=== PATIENT | female | born 1950 | race Caucasian/White ===

== ENCOUNTER 2020-10-23 19:41 | Observation (INO) | payer MEDICARE ==
[~2020-10-23] VITALS: Ht 167.6 cm; Wt 81.6 kg
[2020-10-23 19:44] VITALS: BP 159/94
[2020-10-23] MEDS ORDERED: KLOR-CON 10 ER10 MEQ PO (20:05)
[2020-10-23] MEDS ORDERED: TRIAMTERENE/HCT1 CA1 PO (20:05)
[2020-10-23] MEDS ORDERED: LINZESS72 MCG PO (20:05)
[2020-10-23] MEDS ORDERED: TOPROL XL50 MG PO (20:06)
[2020-10-23] MEDS ORDERED: LORATIDINE 10 M10 M1 PO (20:06)
[2020-10-23 20:12] LABS: ABSOLUTE BASOPHILS 0.1 thou/uL (0.0-0.2); ABSOLUTE EOSINOPHILS 0.1 thou/uL (0.0-0.7); ABSOLUTE LYMPHOCYTES 2.5 thou/uL (0.8-5.3); ABSOLUTE MONOCYTES 0.7 thou/uL (0.0-1.2); BASOPHILS 1.1 %; HEMATOCRIT 38.5 % (37.0-47.0); HEMOGLOBIN 13.2 gm/dL (12.0-15.0); LYMPHOCYTES 23.9 %; MCH 29.6 pg (26.0-34.0); MCHC 34.2 g/dL (28.0-37.0); MCV 86.5 fL (80.0-100.0); MONOCYTES 6.4 %; MPV 7.3 fl. (7.2-11.1); NUCLEATED RBCS 0 /100WBC; PLATELET COUNT* 377 thou/uL (150-400); POLYS 67.6 %; RBC 4.45 mil/uL (4.20-5.00); RDW-CV 12.2 % (10.5-14.5); WBC 10.4 thou/uL (4.0-11.0)
[2020-10-23 20:20] LABS: CALCIUM 8.4 mg/dL (8.5-10.1); CREATININE 1.3 mg/dL (0.6-1.3); POTASSIUM 3.3 mmol/L (3.5-5.1)
[2020-10-23 20:25] LABS: ALBUMIN 3.5 g/dL (3.4-5.0); TOTAL BILIRUBIN 0.4 mg/dL (<0.1-1.0); TOTAL PROTEIN 7.1 g/dL (6.4-8.2)
[2020-10-23] MEDS ORDERED: OXYCODONE HCL 55 MG PO (21:46)
[2020-10-23] MEDS ORDERED: ZOFRAN ODT4 MG PO (21:46)
[2020-10-23 23:26] VITALS: BP 113/54
[2020-10-24] MEDS ORDERED: CALCIUM500 MG PORT (00:57)
[2020-10-24 08:00] VITALS: BP 112/61
--- NOTE | 2020-10-24 10:27 | EKG ---
[place] [address] ELECTROCARDIOGRAM REPORT Name: MARIANO CANAS Room: [address] M.R.#: [id number] Admission: 10/23/20 Attend Phys: Patrick Blake, Discharge: Date of : 52 Date of Service: 10/23/201957 Report #: [id number] THIS REPORT FOR: //name// [facility] ED Test Date: 2020-10-23 Test Time: 19:58:39 Pat Name: MARIANO CANAS Department: Room: [facility] Gender: F Sustainable Landscape Architect: FRANKLYN : 1950 Requested By: Katey Ortiz Order Number: [id number] MD: Selvin Lees Measurements Intervals [place] Rate: 91 P: 72 ND: 149 QRS: 46 QRSD: 68 T: 10 QT: 280 QTc: 345 Interpretive Statements Sinus rhythm Low voltage, precordial leads Nonspecific repol abnormality, diffuse leads No previous ECG available for comparison Electronically Signed On 10-24-2020 10:27:46 CDT by Selvin Lees [email or web address] <ELECTRONICALLY SIGNED> By: Selvin Lees MD, FAC 10/24/20 1027 57 57 Selvin Lees MD, [facility] /EPI
[2020-10-24] MEDS ORDERED: HYDROCODON-ACE1 EAC7 PO (11:41)
[2020-10-24 11:49] VITALS: BP 112/61
[2020-10-24 11:56] VITALS: BP 112/61
[2020-10-24 12:16] VITALS: BP 112/61
== END 2020-10-24 12:42 | disposition home or self-care (01) ==
LOC: M.ERS 19:41 → M.TBA-ER 22:32 → M.ORTHSURG 22:32
PROVIDERS: Personal Emergency Response Attendant; ADMIT Internal Medicine; ATTEND Internal Medicine
DX: S82.852A Displaced trimalleolar fracture of left lower leg, initial encounter for closed fracture (principal); Z20.822 Contact with and (suspected) exposure to COVID-19; S00.93XA Contusion of unspecified part of head, initial encounter; I10 Essential (primary) hypertension; W18.31XA Fall on same level due to stepping on an object, initial encounter; Y93.89 Activity, other specified; Y92.89 Other specified places as the place of occurrence of the external cause

== ENCOUNTER → 2020-11-01 | Day surgery (SDC) | payer MEDICARE ==
[~2020-11-01] MED LIST: ASPIRIN EC325 MG PO; CALCIUM500 MG PORT; HYDROCODON-ACE1 EAC7 PO; KLOR-CON 10 ER10 MEQ PO; LINZESS72 MCG PO; LORATIDINE 10 M10 M1 PO; OXYCODONE HCL 55 MG PO; TOPROL XL50 MG PO; TRIAMTERENE/HCT1 CA1 PO; ZOFRAN ODT4 MG PO
[2020-11-01 13:55] LABS: HEMATOCRIT 41.5 % (37.0-47.0); HEMOGLOBIN 14.1 gm/dL (12.0-15.0); MCHC 33.9 g/dL (28.0-37.0); MCV 88.4 fL (80.0-100.0); MPV 7.7 fl. (7.2-11.1); RBC 4.7 mil/uL (4.20-5.00); RDW-CV 12.6 % (10.5-14.5); WBC 7.1 thou/uL (4.0-11.0)
[2020-11-01 13:59] LABS: CALCIUM 9.5 mg/dL (8.5-10.1); CREATININE 1.1 mg/dL (0.6-1.3); POTASSIUM 4.7 mmol/L (3.5-5.1)
--- NOTE | 2020-11-08 10:40 | OP ---
[address] [place] [address] OPERATIVE REPORT Name: MARIANO CANAS Room: [facility]#: [id number] Admission: 11/01/20 Attend Phys: Ellie Black DO Discharge: Date of : 52 Report #: [id number] THIS REPORT FOR: cc: Amanda Medeiros,Amanda Perkins,Ellie LUGO ~ DOC #: [id number] Ellie Black DO DATE OF SURGERY: 11/01/2020 PREOPERATIVE DIAGNOSIS: Left trimalleolar ankle fracture with syndesmosis injury. POSTOPERATIVE DIAGNOSIS: Left trimalleolar ankle fracture with syndesmosis injury. PROCEDURES: 1. ORIF left lateral malleolus. 2. ORIF left medial malleolus. 3. ORIF, left ankle syndesmosis. 4. Intraoperative physician-guided fluoroscopy less than 1 hour. SURGEON: Ellie Black DO TOBACCO SHAKER: Austin Moreno DO ANESTHESIA: General and regional block. ESTIMATED BLOOD LOSS: 25 mL SPECIMENS: None. DRAINS: None. COMPLICATIONS: None. CONDITION: Stable. DISPOSITION: PACU to home. ANTIBIOTICS: 2 grams Ancef IV preoperatively. TOURNIQUET: Approximately 45 minutes at 250 mmHg. IMPLANTS: Arthrex distal fibular locking plate and screws and a 4.0 mm cannulated partially threaded screw. [address] [place] [address] OPERATIVE REPORT Name: MARIANO CANAS Room: [facility]#: [id number] Admission: 11/01/20 Attend Phys: Ellie Black DO Discharge: Date of : 52 Report #: [id number] INDICATIONS FOR PROCEDURE: The patient is a very pleasant 70-year-old female who fell and broke her ankle approximately 10 days ago. She was seen in the Emergency Department at [place] and followed up in the outpatient setting. X-rays did confirm a trimalleolar ankle fracture with apparent syndesmosis injury. She was splinted. Her skin was noted to be in good condition and amenable to surgical fixation. Therefore, I did recommend open reduction and internal fixation of the left lateral and medial malleolus as well as syndesmosis. Benefits, risks, complications, and alternatives to the procedure were discussed with the patient in detail. These include but are not limited to bleeding, surgical site infection, neurovascular compromise, malunion, nonunion, hardware failure, posttraumatic arthritis, continued pain, need for further surgery, DVT, PE as well as the inherent risks of anesthesia. The patient understands these risks and is agreeable to proceed. Consent was signed in the preoperative holding area and on the chart at time of surgery, operative site was marked. DESCRIPTION OF PROCEDURE: The patient was brought to the operating room and placed supine on the operating table. She was administered general anesthetic. A well-padded tourniquet was placed on the proximal portion of the left thigh. Left lower extremity was sterilely prepped with ChloraPrep and allowed to dry for 3 minutes. She was then draped freely in the usual fashion. Timeout was performed confirming correct patient, site and procedure. Surgical site villeda were identified, all in the room were in agreement. The procedure began with exsanguination of the left lower extremity with an Esmarch and inflation of the tourniquet to 250 mmHg. We then made a standard lateral incision directly overlying the distal fibula. This was carried through skin and subcutaneous tissues. Care was taken to protect the superficial peroneal nerve throughout the entirety of the procedure. Subperiosteal dissection was carried down. Fracture was identified and exposed. Fracture hematoma was cleared. Open reduction was then carried out utilizing bone clamps and held into place, appropriate size distal fibular locking plate was chosen, placed on the bone and into the appropriate position and held with BB tacks. We then drilled, measured, and filled the distal holes in the plate with appropriate length 2.7 mm locking screws. Then, three of the holes in the proximal aspect of the plate were drilled, measured, and filled with appropriate length 3.5 mm cortical screws giving 6 cortices of fixation proximal to the fracture site. We then turned our attention to the medial malleolus. Incision was made directly overlying, this was carried through skin and subcutaneous tissues. Saphenous vein was protected throughout this procedure. Subperiosteal dissection was carried out. She is noted to have a significant amount of deltoid and periosteal tissue that had flipped within the fracture site. This was cleared out. Open reduction was carried out utilizing a dental pick. This was then held in place with two wires K-wire. K-wire positioning was confirmed with C-arm fluoroscopy. The piece was only noted to be big enough for one screw. The appropriate K-wire was [facility] [address] [place] [address] OPERATIVE REPORT Name: MARIANO CANAS Room: [facility]#: [id number] Admission: 11/01/20 Attend Phys: Ellie Black DO Discharge: Date of : 52 Report #: [id number] overdrilled and a 4.0 mm cannulated partially threaded screw was placed across the fracture site giving us bicortical fixation across the medial malleolus. The excess K-wires were removed. We then performed an intraoperative external rotation stress view, there was noted to be slight widening of the syndesmosis with the external rotation stress view also given the fact that this was a trimalleolar ankle fracture. It was determined to fix the syndesmosis using the appropriate drill bit. We drilled across all 4 cortices approximately 2 cm proximal and parallel to the ankle joint. Manual squeeze was done on the syndesmosis and while holding the ankle in neutral dorsiflexion, a TightRope was placed and seated appropriately and tightened down appropriately. Excess sutures were removed. Final x-rays were taken which confirmed appropriate hardware placement, fracture reduction as well as sikhism of a congruent ankle mortise. We then irrigated all wounds with normal saline. Deep tissues were closed with 0 Vicryl suture. Subcutaneous tissue closed with 2-0 Vicryl suture and the skin reapproximated with 3-0 nylon. The wounds were then dressed with Xeroform, 4x4's, ABD, soft roll, and a well-padded posterior splint was applied. Tourniquet was done for approximately 45 minutes. The patient tolerated the procedure well without complication, was transferred to PACU in stable condition. All needle and sponge counts were correct x2 and I was present throughout all pertinent decisions making aspects of the case. DO IWONA Rios/JENNIFER <ELECTRONICALLY SIGNED> By: Ellie Black DO 11/08/20 1040 1536 1853Angmaddi Black DO /vibha
== END | disposition home or self-care (01) ==
LOC: M.SUR 05:43
PROVIDERS: ATTEND Orthopaedic Surgery
DX: S82.852A Displaced trimalleolar fracture of left lower leg, initial encounter for closed fracture (principal); S93.432A Sprain of tibiofibular ligament of left ankle, initial encounter; Z79.899 Other long term (current) drug therapy; Z88.2 Allergy status to sulfonamides; Z88.8 Allergy status to other drugs, medicaments and biological substances; Z79.82 Long term (current) use of aspirin; X58.XXXA Exposure to other specified factors, initial encounter; Y93.89 Activity, other specified; Y92.89 Other specified places as the place of occurrence of the external cause; Y99.8 Other external cause status